=== PATIENT | male | born 1935 | race Caucasian/White ===

== ENCOUNTER → 2017-11-22 | Outpatient (CLI) | payer MEDICARE ==
[2017-11-22] VITALS (8 sets, daily range): BP systolic 114–129; BP diastolic 61–89
[~2017-11-22] VITALS: Ht 175.3 cm; Wt 81.6 kg
[~2017-11-22] MED LIST: ALDACTONE50 MG PO; CARVEDILOL25 MG PO; COZAAR 25 MG TA25 M1 PO; FOLBIC RF TABL1 EACH PO; HYDROCHLOROTHIA25 M1 PO; IRON325 PO; KLOR-CON 1010 MEQ PO; LASIX 40 MG TAB40 M2 PO; LEVAQUIN 500 M500 M2 PO; LEVOTHYROXIN0.137 M1 PO; LISINOPRIL20 MG PO; MECLIZINE HCL25 MG PO; MELATONIN3 MG PO; REQUIP 1 MG TABL1 M1 PO; TIKOSYN0.25 MG PO; TRAZODONE HCL50 MG PO; VITAMIN D1000 UNI1 PO; XARELTO20 MG PO
[2017-11-22 13:27] LABS: HEMATOCRIT 39.9 % (42.0-52.0); HEMOGLOBIN 13.7 gm/dL (14.0-18.0); MCH 32.4 pg (26.0-34.0); MCHC 34.3 g/dL (28.0-37.0); MCV 94.5 fL (80.0-100.0); MPV 7.7 fl. (7.2-11.1); RBC 4.22 mil/uL (4.50-6.00); RDW-CV 15.4 % (10.5-14.5); WBC 6.8 thou/uL (4.0-11.0)
[2017-11-22 13:38] LABS: ANION GAP 6 mmol/L (7-16); BUN 19 mg/dL (7-18); CHLORIDE 102 mmol/L (98-107); CO2 28 mmol/L (21-32); CREATININE 1.1 mg/dL (0.6-1.3); GLUCOSE 96 mg/dL (70-99); POTASSIUM 3.8 mmol/L (3.5-5.1); SODIUM 136 mmol/L (136-145)
[2017-11-22 13:39] LABS: APTT 27.9 Seconds (25.0-31.3); INR 1.2; PROTIME 12.4 Seconds (9.20-11.50)
[2017-11-22 13:42] LABS: ALBUMIN 3.8 g/dL (3.4-5.0); ALKALINE PHOSPHATASE 106 U/L (46-116); CHOLESTEROL 107 mg/dL (<200); HDL CHOLESTEROL 30 mg/dL (>40); LDL CHOLESTEROL 65 mg/dL (<100); SGOT 21 U/L (15-37); SGPT 32 U/L (30-65); TC:HDL 3.6 Ratio (Not establshd); TOTAL PROTEIN 7.4 g/dL (6.4-8.2); TRIGLYCERIDE 61 mg/dL (<150); VLDL 12 mg/dL (<40)
[2017-11-22 13:43] LABS: SERUM ASSESSMENT Clear
--- NOTE | 2017-11-22 18:13 | EKG ---
[place] [address] ELECTROCARDIOGRAM REPORT Name: JUANCARLOSBILL MAJOR Room: [facility]#: [id number] Admission: 11/22/17 Attend Phys: Augie Joya MD Discharge: Date of : 33 Report #: [id number] THIS REPORT FOR: //name// [facility] Test Date: 2017-11-22 Test Time: 14:02:31 Pat Name: BILL BAUER Department: Room: Gender: M Service Unit Operator: : 1935 Requested By: Augie Joya Order Number: [id number] MD: Augie Joya Measurements Intervals [place] Rate: 70 P: [place]: QRS: 263 QRSD: 181 T: 86 QT: 503 QTc: 543 Interpretive Statements ventricular-paced rhythm No further analysis attempted due to paced rhythm Compared to ECG 02/10/2016 09:11:13 AV dual-paced complex(es) or rhythm no longer present Electronically Signed On 11-22-2017 18:13:43 CDT by Augie Joya [email or web address] <ELECTRONICALLY SIGNED> By: Augie Joya MD, [facility] 11/22/171812 140 01 Augie Joya MD, FAC /EPI
--- NOTE | 2017-11-27 17:39 | CARD ---
[address] [address] CARDIAC CATH REPORT Name: BILL BAUER Room: [facility]#: [id number] Admission: 11/22/17 Attend Phys: Augie Joya MD Discharge: Date of : 34 Report #: [id number] THIS REPORT FOR: //name// APPROVED REPORT Study performed: 11/22/2017 15:23:38 Patient Details Patient Status: Out-Patient Room #: The patient is a 82 year-old male Event Personnel Augie Joya Air Bag Buffer, Roxana Borrego RN Track Inspector, Olivia Preston Monitor, Colin Witt (R) Scrub Procedures Performed Art Access - R radial artery Left Heart Cath w/or w/o Coronaries [id number] [facility] Procedure Narrative The patient was brought electively to the Cardiac Catheterization Laboratory and was prepped and draped in a sterile manner. The right wrist was infiltrated with 2% Lidocaine subcutaneous anesthesia. A Slender Glidesheath sheath was inserted into the right radial artery. Coronary angiography was performed using coronary diagnostic catheters. The right coronary system was accessed and visualized with a DCR: Frohna 4.0 5fr catheter. The left coronary system was accessed and visualized with a DCR: Frohna 4.0 5fr catheter. The left ventricle was accessed and visualized with a PC: Angled Pig 5fr catheter. Left ventricular/Aortic Valve gradient assessed via catheter pullback. Left ventriculogram was performed in BANSAL projection. Intraoperative Conscious Sedation Sedation start time: 15:50 Case end Time: 16:07 Fentanyl 25 mcg Versed 2 mg Fluoro Time: 4.7 minutes Dose: DAP 65415 cGycm2 863.99 mGy Contrast Type and Amount: Omnipaque 100 ml Diagnostic Cath Left [place] [address] CARDIAC CATH REPORT Name: BILL BAUER Room: [facility]#: [id number] Admission: 11/22/17 Attend Phys: Augie Joya MD Discharge: Date of : 34 Report #: [id number] Diagonal 1 Normal large branched Circumflex Normal OM1 Normal large in branched OM2 Normal and small in caliber OM3 Normal and small in caliber Right Coronary Normal R PDA Normal RPLV Small in caliber and normal Left Ventriculography The left ventricle is normal in size with moderately decreased contractility. The left ventricular ejection fraction is estimated to be 35-40%. There is global hypokinesis. Hemodynamics The aortic pressure is 106/54 mmHg with a mean of mmHg. The left ventricular pressure is 106/8 mmHg with a mean of mmHg. The left ventricular end diastolic pressure is 17 mmHg. There was no gradient across the aortic valve upon pullback. Pullback from the left ventricle to the aorta revealed no gradient across the aortic valve. Conclusion 1. Normal coronary arteries. 2. Global left ventricular systolic dysfunction. 3. Findings consistent with nonischemic cardiomyopathy. Recommendations 1. Continue medical management for heart failure. <ELECTRONICALLY SIGNED> By: Augie Joya MD, FACC 11/27/17 1739 38 173Micngozi Joya MD, FACC /INF
== END | disposition home or self-care (01) ==
LOC: M.CL 12:55
PROVIDERS: Internal Medicine Cardiovascular Disease
DX: I25.10 Atherosclerotic heart disease of native coronary artery without angina pectoris (principal); I48.0 Paroxysmal atrial fibrillation; I50.9 Heart failure, unspecified; Z79.899 Other long term (current) drug therapy; Z79.01 Long term (current) use of anticoagulants; Z98.890 Other specified postprocedural states

== ENCOUNTER 2017-11-26 16:43 | Inpatient (IN) | payer MEDICARE ==
[~2017-11-26] VITALS: Ht 175.3 cm; Wt 78.9 kg
[~2017-11-26 16:43] MED LIST changes: -ALDACTONE50 MG PO; -LEVAQUIN 500 M500 M2 PO
[2017-11-26 16:51] VITALS: BP 123/74
[2017-11-26 17:24] LABS: URINE BILIRUBIN NEGATIVE (Negative); URINE BLOOD TRACE (Negative); URINE CLARITY CLEAR; URINE COLOR YELLOW; URINE GLUCOSE-RANDOM NEGATIVE (Negative); URINE KETONES NEGATIVE (Negative); URINE LEUKOCYTES 1+ (Negative); URINE NITRITE NEGATIVE (Negative); URINE PROTEIN NEGATIVE (Negative); URINE UROBILINOGEN 0.2 E.U./dl (0.2-1.0)
[2017-11-26 17:37] LABS: BACTERIA None Seen /HPF (None Seen); CRYSTALS None Seen /LPF (None Seen); MUCUS None Seen strn/LPF (None Seen); SQUAMOUS NONE SEEN /LPF (0-3); URINE RBC 0-2 Rare /HPF (0-2); URINE WBC 0-5 Rare /HPF (0-5)
[2017-11-26 17:38] LABS: CASTS None Seen /LPF (None Seen)
[2017-11-26 17:38] LABS: ABSOLUTE BASOPHILS 0.1 thou/uL (0.0-0.2); ABSOLUTE EOSINOPHILS 0.2 thou/uL (0.0-0.7); ABSOLUTE MONOCYTES 0.5 thou/uL (0.0-1.2); ABSOLUTE NEUTROPHILS 4.4 thou/uL (1.6-8.1); BASOPHILS 1.3 %; EOSINOPHILS 3.3 %; HEMATOCRIT 40.8 % (42.0-52.0); HEMOGLOBIN 13.9 gm/dL (14.0-18.0); LYMPHOCYTES 16.3 %; MCH 32.2 pg (26.0-34.0); MCV 94.8 fL (80.0-100.0); MPV 8.3 fl. (7.2-11.1); NUCLEATED RBCS 0 /100WBC; PLATELET COUNT* 155 thou/uL (150-400); POLYS 71.1 %; RDW-CV 15.8 % (10.5-14.5); WBC 6.2 thou/uL (4.0-11.0)
[2017-11-26 17:48] LABS: ANION GAP 6 mmol/L (7-16); BUN 18 mg/dL (7-18); CALCIUM 9.7 mg/dL (8.5-10.1); CHLORIDE 102 mmol/L (98-107); CO2 29 mmol/L (21-32); CREATININE 1.3 mg/dL (0.6-1.3); GLUCOSE 97 mg/dL (70-99); POTASSIUM 4.1 mmol/L (3.5-5.1); SODIUM 137 mmol/L (136-145)
[2017-11-26 17:51] LABS: APTT 32.5 Seconds (25.0-31.3); INR 1.4; PROTIME 13.9 Seconds (9.20-11.50)
[2017-11-26 18:00] LABS: ALBUMIN 4.1 g/dL (3.4-5.0); ALKALINE PHOSPHATASE 102 U/L (46-116); NT-PRO BRAIN NAT PEPTIDE 14072 pg/mL (<300); SGOT 21 U/L (15-37); SGPT 27 U/L (30-65); TOTAL BILIRUBIN 2.3 mg/dL (<0.1-1.0); TOTAL PROTEIN 8.1 g/dL (6.4-8.2); TROPONIN-I LEVEL <0.06 ng/mL (<0.06)
[2017-11-26 21:00] VITALS: BP 129/62
[2017-11-26 21:15] VITALS: BP 138/73
[2017-11-26] MEDS ORDERED: ALDACTONE50 MG PO (22:35)
[2017-11-27] VITALS: BP 123/61
[2017-11-27 04:00] VITALS: BP 141/55
[2017-11-27 07:20] VITALS: BP 117/70
[2017-11-27 12:32] VITALS: BP 102/55
[2017-11-27 15:44] VITALS: BP 106/55
--- NOTE | 2017-11-27 17:09 | EKG ---
[place] [address] ELECTROCARDIOGRAM REPORT Name: BILL BAUER Room: [address] ADM IN M.R.#: [id number] Admission: 11/26/17 Attend Phys: Kimberley Lima Discharge: Date of : 34 Report #: [id number] THIS REPORT FOR: //name// [facility] ED Test Date: 2017-11-26 Test Time: 17:13:56 Pat Name: BILL BAUER Department: Room: [facility] Gender: M Able Seaman: JOSE : 1935 Requested By: Karma Bueno Order Number: [id number] MD: Eduardo Watts Measurements Intervals [place] Rate: 71 P: [place]: QRS: 268 QRSD: 168 T: 93 QT: 477 QTc: 519 Interpretive Statements Afib/flut and V-paced complexes No further analysis attempted due to paced rhythm Compared to ECG 11/22/2017 14:02:31 No significant changes Electronically Signed On 11-27-2017 17:09:12 CDT by Eduardo Watts [email or web address] <ELECTRONICALLY SIGNED> By: Eduardo Watts MD, FACC 11/27/17 1709 1713 1713 Eduardo Watts MD, FAC /EPI
[2017-11-27 20:00] VITALS: BP 103/61
[2017-11-28] VITALS: BP 118/65
[2017-11-28 04:00] VITALS: BP 101/49
[2017-11-28 05:10] LABS: HEMATOCRIT 42.5 % (42.0-52.0); HEMOGLOBIN 14.6 gm/dL (14.0-18.0); MCH 31.9 pg (26.0-34.0); MCHC 34.3 g/dL (28.0-37.0); MCV 93.2 fL (80.0-100.0); MPV 7.9 fl. (7.2-11.1); RBC 4.56 mil/uL (4.50-6.00); RDW-CV 15.8 % (10.5-14.5); WBC 6.1 thou/uL (4.0-11.0)
[2017-11-28 06:05] LABS: ALBUMIN 3.8 g/dL (3.4-5.0); CALCIUM 9.1 mg/dL (8.5-10.1); CREATININE 1.2 mg/dL (0.6-1.3); POTASSIUM 3.5 mmol/L (3.5-5.1); TOTAL BILIRUBIN 2.4 mg/dL (<0.1-1.0); TOTAL PROTEIN 7.1 g/dL (6.4-8.2)
[2017-11-28 08:37] VITALS: BP 123/64
[2017-11-28 12:00] VITALS: BP 109/62
[2017-11-28] MEDS ORDERED: LEVAQUIN 500 M500 M2 PO (12:25)
== END 2017-11-28 15:00 | disposition home or self-care (01) | DRG 291 ==
LOC: M.ERS 16:43 → M.TBA-ER 19:06 → M.2W 19:06
PROVIDERS: Nurse Practitioner Family; ADMIT Internal Medicine
DX: I11.0 Hypertensive heart disease with heart failure (principal); I50.31 Acute diastolic (congestive) heart failure; J96.00 Acute respiratory failure, unspecified whether with hypoxia or hypercapnia; I42.8 Other cardiomyopathies; E89.0 Postprocedural hypothyroidism; R91.8 Other nonspecific abnormal finding of lung field; R59.1 Generalized enlarged lymph nodes; Z79.01 Long term (current) use of anticoagulants; Z79.899 Other long term (current) drug therapy; Z85.850 Personal history of malignant neoplasm of thyroid; Z87.891 Personal history of nicotine dependence

== ENCOUNTER 2017-12-04 21:16 | Inpatient (IN) | payer MEDICARE ==
[~2017-12-04] VITALS: Ht 175.3 cm; Wt 81.6 kg
[~2017-12-04 21:16] MED LIST changes: +ALDACTONE50 MG PO; +LEVAQUIN 500 M500 M2 PO
[2017-12-04 21:28] VITALS: BP 100/43
[2017-12-04 22:11] LABS: ABSOLUTE BASOPHILS 0.1 thou/uL (0.0-0.2); ABSOLUTE EOSINOPHILS 0.2 thou/uL (0.0-0.7); ABSOLUTE LYMPHOCYTES 0.9 thou/uL (0.8-5.3); ABSOLUTE MONOCYTES 0.8 thou/uL (0.0-1.2); ABSOLUTE NEUTROPHILS 6.7 thou/uL (1.6-8.1); BASOPHILS 0.6 %; EOSINOPHILS 2.6 %; HEMATOCRIT 47.5 % (42.0-52.0); HEMOGLOBIN 16.1 gm/dL (14.0-18.0); LYMPHOCYTES 10.5 %; MCHC 33.8 g/dL (28.0-37.0); MCV 94.8 fL (80.0-100.0); MONOCYTES 8.8 %; MPV 8.3 fl. (7.2-11.1); NUCLEATED RBCS 0 /100WBC; PLATELET COUNT* 184 thou/uL (150-400); POLYS 77.5 %; RBC 5.02 mil/uL (4.50-6.00); RDW-CV 15.8 % (10.5-14.5); WBC 8.7 thou/uL (4.0-11.0)
[2017-12-04 22:18] LABS: ANION GAP 9 mmol/L (7-16); BUN 72 mg/dL (7-18); CALCIUM 10.7 mg/dL (8.5-10.1); CHLORIDE 98 mmol/L (98-107); CO2 26 mmol/L (21-32); CREATININE 2.8 mg/dL (0.6-1.3); GLUCOSE 146 mg/dL (70-99); POTASSIUM 4.8 mmol/L (3.5-5.1); SODIUM 133 mmol/L (136-145)
[2017-12-04 22:19] LABS: APTT 33.2 Seconds (25.0-31.3); INR 1.3; PROTIME 13.8 Seconds (9.20-11.50)
[2017-12-04 22:29] LABS: ALBUMIN 3.8 g/dL (3.4-5.0); ALKALINE PHOSPHATASE 104 U/L (46-116); NT-PRO BRAIN NAT PEPTIDE 5552 pg/mL (<300); SGOT 21 U/L (15-37); SGPT 27 U/L (30-65); TOTAL BILIRUBIN 1.3 mg/dL (<0.1-1.0); TOTAL PROTEIN 7.8 g/dL (6.4-8.2); TROPONIN-I LEVEL <0.06 ng/mL (<0.06)
[2017-12-05] VITALS (7 sets, daily range): BP systolic 95–130; BP diastolic 48–67
[2017-12-05 01:22] LABS: URINE BILIRUBIN NEGATIVE (Negative); URINE BLOOD 2+ (Negative); URINE CLARITY CLEAR; URINE COLOR YELLOW; URINE GLUCOSE-RANDOM NEGATIVE (Negative); URINE KETONES NEGATIVE (Negative); URINE LEUKOCYTES-REFLEX TRACE (Negative); URINE NITRITE-REFLEX NEGATIVE (Negative); URINE PROTEIN NEGATIVE (Negative); URINE UROBILINOGEN 0.2 E.U./dl (0.2-1.0)
[2017-12-05 01:37] LABS: SQUAMOUS 0-3 Few /LPF (0-3)
[2017-12-05 01:38] LABS: BACTERIA-REFLEX 1-9 Few /HPF (None Seen); CASTS None Seen /LPF (None Seen); URINE RBC 3-10 Few /HPF (0-2); URINE WBC-REFLEX 0-5 Rare /HPF (0-5)
[2017-12-05 01:39] LABS: CRYSTALS None Seen /LPF (None Seen)
--- NOTE | 2017-12-05 05:20 | NUR ---
PATIENT RESTED IN BED, NO ACUTE CHANGES. PATIENT DID NOT SHOW SIGNS OF DISTRESS. FALL PRECAUTIONS IN PLACE, CALL LIGHT WITH IN REACH, HOURY ROUNDING OBSERVED, BED ALARM ON.
[2017-12-05 06:59] LABS: CALCIUM 9.8 mg/dL (8.5-10.1); CREATININE 2.3 mg/dL (0.6-1.3); POTASSIUM 4.5 mmol/L (3.5-5.1)
--- NOTE | 2017-12-05 10:57 | EKG ---
[place] [address] ELECTROCARDIOGRAM REPORT Name: BILL BAUER Room: [address] ADM IN M.R.#: [id number] Admission: 12/04/17 Attend Phys: Kelsey Treviño Discharge: Date of : 34 Report #: [id number] THIS REPORT FOR: //name// [facility] ED Test Date: 2017-12-04 Test Time: 21:45:38 Pat Name: BILL BAUER Department: Room: [facility] Gender: M Binder Operator: CODEY : 1935 Requested By: Stacey Mcfarland Order Number: [id number] MD: Zack Cox Measurements Intervals [place] Rate: 70 P: [place]: QRS: -86 QRSD: 166 T: 97 QT: 457 QTc: 494 Interpretive Statements Afib/flutter and ventricular-paced rhythm No further analysis attempted due to paced rhythm Compared to ECG 11/26/2017 17:13:56 No significant changes Electronically Signed On 12-05-2017 10:57:33 CDT by Zack Cox [email or web address] <ELECTRONICALLY SIGNED> By: Zack Cox MD, FACC 12/05/17 1057 2145 2145 Zack Cox MD, FAC /EPI
--- NOTE | 2017-12-05 11:17 | NUR ---
RECEIVED REPORT FROM WANDA AND ASSUMED CARE OF PT @ 9210.PT IS A/O X4, VSS,TRACING V PACED WITH A BBB ON THE MONITOR.LUNG SOUNDS ARE CLEAR.LAST BM WAS YESTERDAY.IV PATENT WITH FLUIDS INFUSING PER ORDERS.PT IS CALM AND COOPERATIVE WITH NO C/O PAIN AT TIME OF ASSESSMENT.PT ACTIVITY ORDERED BEDREST.PT LEFT RESTING IN BED WITH CALL LIGHT AND FALL PRECAUTIONS IN PLACE.WILL CONTINUE TO MONITOR.
--- NOTE | 2017-12-05 15:26 | NUR ---
Pt known to this CM from previous hospital stay last week. Pt is A&O. Resides at home with his . Normally independent with ADLs. Pt has a cane that he can use as needed. Pt sleeps with a bipap. No hx of HH or SNF. Goal is home at wi. No needs anticipated.
--- NOTE | 2017-12-05 18:25 | NUR ---
VSS,CARDIAC MONITORING IN PLACE WITH NO CHANGES THIS SHIFT.PT REMAINS ON 2L O2 NC.NO C/O PAIN.IV PATENT WITH IVF INFUSING PER ORDERS.CT COMPLETED.PT HAS BEEN UP TO BATHROOM WITH ASSIST OF ONE.HOURLY ROUNDING COMPLETED FOR PT SAFETY. CALL LIGHT AND FALL PRECAUTIONS IN [place]. WILL CONTINUE TO MONITOR FOR DURATION OF SHIFT.
[2017-12-06 00:43] VITALS: BP 111/58
--- NOTE | 2017-12-06 01:04 | NUR ---
PT ALERT ORIENTED. UP WITH CANE AND ASSIST OF ONE. TELEMETRY SHOWS V-PACED. O2 AT 2 LITERS NC. NS AT 125MLS/HR. WILL CONTINUE TO MONITOR.
[2017-12-06 04:25] VITALS: BP 111/60
[2017-12-06 05:15] LABS: HEMATOCRIT 46.2 % (42.0-52.0); HEMOGLOBIN 15.8 gm/dL (14.0-18.0); MCH 32.2 pg (26.0-34.0); MCHC 34.1 g/dL (28.0-37.0); MCV 94.4 fL (80.0-100.0); MPV 8.3 fl. (7.2-11.1); RBC 4.9 mil/uL (4.50-6.00); RDW-CV 15.5 % (10.5-14.5)
[2017-12-06 05:32] LABS: ALBUMIN 3.5 g/dL (3.4-5.0); CALCIUM 9.1 mg/dL (8.5-10.1); CREATININE 1.7 mg/dL (0.6-1.3); MAGNESIUM 1.9 mg/dL (1.8-2.4); POTASSIUM 4.3 mmol/L (3.5-5.1); TOTAL BILIRUBIN 1.8 mg/dL (<0.1-1.0); TOTAL PROTEIN 6.7 g/dL (6.4-8.2)
[2017-12-06 08:20] VITALS: BP 116/71
[2017-12-06 11:34] VITALS: BP 135/61
--- NOTE | 2017-12-06 13:09 | NUR ---
PT ALERT, ORIENTED AND ALL VSS ON ROOM AIR. DENIES PAIN, SOA. PT LOOKING FORWARD TO DC THIS AFTERNOON. AT BEDSIDE THROUGHOUT SHIFT. EDUCATED ON SAFETY AND PLAN OF CARE. PLEASE SEE ASSESSMENT FOR ADDITIONAL INFORMATION. WILL CONTINUE TO MONITOR
[2017-12-06 13:48] VITALS: BP 135/61
--- NOTE | 2017-12-06 15:51 | NUR ---
PT DC HOME WITH AT APPROX 1500 IN STABLE CONDITION. DC INSTRUCTIONS PROVIDED TO PT AND - VERBALIZE UNDERSTANDING.
--- NOTE | 2017-12-07 09:19 | CON ---
[address] [address] CONSULTATION Name: BILL BAUER Room: [address] IN M.R.#: [id number] Admission: 12/04/17 Attend Phys: Kelsey Treviño Discharge: 12/06/17 Date of : 34 Report #: [id number] THIS REPORT FOR: //name// CC: Dilip Pop DATE OF SERVICE: 12/05/2017 CONSULTING PHYSICIAN: Dr. Pop. REASON FOR NEPHROLOGY CONSULTATION: Acute kidney injury on chronic kidney disease stage 3. CHIEF COMPLAINT: Weakness and loss of appetite and 5-pound weight loss in the last 6 days, and low blood pressure and fatigue. HISTORY OF PRESENT ILLNESS: This is an 82-year-old male who has past medical history of chronic systolic congestive heart failure, has AICD, ejection fraction 35-40% in 11/2017, baseline creatinine 1.1-1.2, recently discharged a week ago from our hospital when he got admitted for congestive heart failure exacerbation and was restarted on his Lasix, which was initially stopped because of cardiac cath. He came in yesterday because he has been feeling very weak. He has loss of appetite. He has lost about 5 pounds of weight in the last 6 days. On his last hospitalization, he had a cardiac cath and he was off Lasix for 2 days, cardiac catheterization did not reveal any obstruction and was deemed that he has nonischemic cardiomyopathy and he was restarted on Lasix after 2 days of hold because he started having shortness of breath. At this time, he was found to be quite hypotensive and orthostatic hypotension as well in the ER. He was started on IV fluids and all his diuretics on hold. His creatinine was 2.8 when he came in and it has come down to 2.3 now. He does not have any difficulty breathing or difficulty urinating. His is at his bedside. He does not take any NSAIDs. No history of any kidney stones. ALLERGIES: No known drug allergies. REVIEW OF SYSTEMS: As mentioned in history of present illness. HOME MEDICATIONS: Include Levaquin, cholecalciferol, ferrous sulfate, losartan, trazodone, ropinirole, B12, levothyroxine, potassium, carvedilol, rivaroxaban, furosemide and spironolactone. PAST MEDICAL AND SURGICAL HISTORY: Include thyroidectomy, chronic systolic congestive heart failure with ejection fraction of 35-40%, nonischemic cardiomyopathy, history of thyroid cancer AICD, chronic kidney disease stage 3, baseline creatinine 1.1-1.2. [place] [address] CONSULTATION Name: BILL BAUER Room: [address] IN M.R.#: [id number] Admission: 12/04/17 Attend Phys: Kelsey Treviño Discharge: 12/06/17 Date of : 34 Report #: [id number] FAMILY HISTORY: No family history of any kidney disease. SOCIAL HISTORY: He does not smoke, take alcohol or use recreational drug use. He lives at home with his . PHYSICAL EXAMINATION: VITAL SIGNS: Blood pressure is 107/57, respiratory rate is 16, pulse rate was 66, temperature is 36.7 and pulse is 95% on room air. GENERAL: He is awake and alert and oriented, just feels weakness. HEAD, EYES, EARS, NOSE, THROAT: Mucous membranes are moist. NECK: There is no JVD. CHEST: Clear to auscultation bilaterally anteriorly. No crackles or wheezing heard. CARDIOVASCULAR: S1, S2 normal. No murmurs. ABDOMEN: Soft, nondistended, nontender. Bowel sounds are present. EXTREMITIES: There is no lower extremity edema, symmetrical lower extremity. NEUROLOGICAL: Gross neurological function is intact. PSYCHIATRIC: Mood and affect seem to be normal. LABORATORY DATA: Hemoglobin is 16.1. Sodium 135, potassium 4.5, chloride 101, BUN 65. Creatinine 2.3 from 2.8 yesterday and other labs are reviewed. IMAGING: Head CT and chest x-ray were reviewed. ASSESSMENT: 1. Acute kidney injury on chronic kidney disease stage 3 in the setting of hypotension, ARB use, Aldactone use and Lasix use and extreme intravascular volume depletion. Creatinine was 2.8 on admission. UA shows 3-10 rbc's by high-power field and this should be repeated once his acute kidney injury gets better. Acute injury is improving with IV fluids and holding diuretics. 3. Chronic systolic congestive heart failure, nonischemic cardiomyopathy, ejection fraction 35-40%. He is currently dry. 4. Severe orthostatic hypotension because of volume depletion and diuretics. 5. Fatigue because of dehydration. PLAN: 1. Continue fluids, but I would recommend decreasing IV fluids now to normal saline at 50 mL an hour. 2. Creatinine is getting better with IV fluids. We do not need to check a renal ultrasound and check serum immunofixation study right now. If we do not see improvement or if he is worsening again, we might want to check ultrasound and serum immunofixation. 3. Continue to hold the ARB, Aldactone and Lasix for now. Also, continue to hold his potassium for now. Thank you for the consultation. We will continue to follow along with you. [place] [address] CONSULTATION Name: BILL BAUER Room: [address] IN M.R.#: [id number] Admission: 12/04/17 Attend Phys: Kelsey Treviño Discharge: 12/06/17 Date of : 34 Report #: [id number] Discussed the plan with the patient, the patient's as well as the patient's nurse. <ELECTRONICALLY SIGNED> By: Licha Leavitt MD 12/07/17 0919 1001 [id number] Leavitt MD /nt
--- NOTE | 2017-12-07 12:46 | CON ---
[address] [address] CONSULTATION Name: BILL BAUER Room: [address] IN M.R.#: [id number] Admission: 12/04/17 Attend Phys: Kelsey Treviño Discharge: 12/06/17 Date of : 34 Report #: [id number] THIS REPORT FOR: //name// CC: Dilip Pop DATE OF SERVICE: 12/06/2017 REQUESTING PHYSICIAN: Chantell Moore REASON FOR CONSULTATION: Pulmonary nodules. DISCUSSION: The patient is an 82-year-old man who is in the hospital currently because of acute kidney injury and ongoing issues with heart failure and diuresis. When he was here earlier this month, he had a CT scan done of his chest. It did reveal pulmonary nodules. He is a remote smoker. He has had pulmonary nodules as well as mediastinal adenopathy noted previously. He does follow with Dr. Carmona in our office. His last study was this spring. However, those films were not done at [facility]. Those imaging studies did reveal that the changes were stable to actually improved and reviewing the notes, the tentative plan was to repeat imaging studies about a year after the previous ones. He is a very remote smoker. He does have a history of sleep apnea, but otherwise has not had a history of asthma or any COPD. He is supposed to be on BiPAP at home for his sleep apnea. This month, he has had issues with his heart failure. He has been diuresed. Came back because his creatinine was actually elevated and he was weak. He was cautiously hydrated. His creatinine has improved. He is not requiring any supplemental oxygen. He had followup imaging done again. This shows the persistence of the nodules and adenopathy and we were asked to see him. PAST MEDICAL HISTORY: Remarkable for atrial fibrillation, coronary artery disease and heart failure as noted. He has a history of thyroid cancer. He had a thyroidectomy in 2010. He was treated with radioactive iodine after that. He has continued with regular followup with a physician now by [facility]. He is due for followup within the next month or so. He has a history of atrial fibrillation, nonischemic cardiomyopathy, thyroid cancer and nephrolithiasis. He has had cataract surgery. He is chronically anticoagulated. SOCIAL HISTORY: He is . 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 Remote smoker, quitting back in the 1960s. He has less than 71-exvj-eabq [place] [address] CONSULTATION Name: BILL BAUER Room: [address]#: [id number] Admission: 12/04/17 Attend Phys: Kelsey Treviño Discharge: 12/06/17 Date of : 34 Report #: [id number] FAMILY HISTORY: Positive for hypertension. REVIEW OF SYSTEMS: ROS was done. No positives as above. Typically, he does not have much of any cough or sputum production. No wheezing. No chest pain or palpitations. The weakness he had at the time of admission has improved. No lower extremity edema. No difficulty swallowing. No indigestion or heartburn. PHYSICAL EXAMINATION: GENERAL APPEARANCE: A man who looks stated age. He is fully dressed and actually anxious to be discharged. His is present as well. HEENT: Head is normocephalic and atraumatic. Sclerae are nonicteric. Mucous membranes are little dry. NECK: Negative for adenopathy. Neck muscles well developed. Neck veins do not appear full. No supraclavicular adenopathy. HEART: Irregularly irregular. Grade 1/6 systolic murmur. LUNGS: Clear. No wheezing or crackles are heard. Excursion is equal. EXTREMITIES: He has no clubbing. Lower extremities are negative for edema. LABORATORY AND X-RAY FINDINGS: CT scans done here do show bilateral small pulmonary nodules. He also has mediastinal adenopathy as well as some hilar adenopathy. I am unable to do a direct comparison with studies done at [facility]. I do have those reports; however, provided to me by my office. As I commented, unable to do a direct comparison. However, on reviewing measurements obtained on imaging studies done earlier this year, it appears to me that with the current findings that findings are at least stable to perhaps improved. His chemistry, he came in with a ____ of 2.8 and has decreased to 1.7 today and his BUN is 47. Serum bicarbonate 25 and potassium is 4.3. Total bilirubin had been up to 2.4 and down to 1.8. ProBNP several days ago was just over 5500. White blood cell count 7000, hemoglobin 15.8, hematocrit of 46.2 and platelets are 130,000. He is on room air. IMPRESSION: 1. Bilateral small pulmonary nodules. He has been followed over the last several years by Dr. Carmona in our office for these. He has associated mild mediastinal adenopathy as well. I believe current findings are probably stable to perhaps slightly improved. 2. History of thyroid cancer. Status post thyroidectomy and radioactive iodine treatment. 3. Nonischemic cardiomyopathy. 4. Atrial fibrillation, he is on chronic anticoagulation therapy. 5. Sleep apnea, he is on BiPAP at home. RECOMMENDATIONS: [facility] [address] [address] CONSULTATION Name: BILL BAUER Room: [address] IN M.R.#: [id number] Admission: 12/04/17 Attend Phys: Kelsey Treviño Discharge: 12/06/17 Date of : 34 Report #: [id number] 1. He can be discharged at any time from our viewpoint. No additional testing or intervention needs to be done in this regard. 2. Keep his appointment with Dr. Carmona. He will need followup imaging done in the future. Discussed with him and his . They are both aware of the fact that with the findings noted, a biopsy would be extremely difficult given the relatively small size of the nodules. High likelihood of a pneumothorax. We will continue close observation. <ELECTRONICALLY SIGNED> By: Mag Toledo MD 12/07/17 1246 1347 [id number] Toledo MD /nt
--- NOTE | 2017-12-07 13:12 | CON ---
[address] [address] CONSULTATION Name: BILL BAUER Room: [address] IN M.R.#: [id number] Admission: 12/04/17 Attend Phys: Kelsey Treviño Discharge: 12/06/17 Date of : 33 Report #: [id number] THIS REPORT FOR: //name// CC: Dilip Bird DATE OF SERVICE: 12/05/2017 TYPE OF REPORT: Cardiology consultation. HISTORY OF PRESENT ILLNESS: The patient is an 82-year-old white male who I was asked to see in the hospital today after he was noted be hypotensive. The patient has an extensive past medical history. He has a long history of paroxysmal atrial fibrillation. He previously was cared for by my partner, Dr. Aragon. He has been cardioverted several times in the past. However, he had recurrent AFib. He eventually underwent AV node ablation followed by placement of a defibrillator for primary prevention in the setting of a cardiomyopathy. Recently, he has been followed by my partner, Dr. Joya. He actually just underwent a cardiac catheterization last month after he was noted to have an abnormal nuclear stress test. Ejection fraction on the nuclear stress test was only 31%. There was evidence of previous inferior infarction but no ischemia. Dr. Joya then performed a cardiac catheterization on November 22, which is basically 2 weeks ago. This was performed from the right radial artery. The coronary arteries had no significant atherosclerosis. Ejection fraction was 35%. Left ventricular end diastolic pressure was 17. He went home but was readmitted 3 days later with increasing shortness of breath. He was admitted to the hospital and a chest x-ray showed normal heart size and clear lung sampson. He did undergo CT scan of the chest using a PE protocol that showed no pulmonary emboli, multiple small nodules, hilar adenopathy consistent with metastatic disease and small effusions. He also had a CT scan of the head that showed no hemorrhage but atrophy. The patient was diuresed and he was sent home a week ago. He returned to see my nurse practitioner 5 days ago. When the patient came to the office, he complained of fatigue. He has had no further edema. His blood pressure was 110. The states that recently he has been very fatigued and had no energy. He has had no vomiting, fever, diarrhea or bleeding. He denied any chest pain, shortness of breath, orthopnea or palpitations. He has never had a discharge of his defibrillator. Yesterday, the patient's blood pressure was noted to be less than 100. The patient called my office and was told to come to the hospital and he was admitted last night for further evaluation and treatment. PAST MEDICAL HISTORY: Significant for thyroidectomy for cancer and cataract extraction. No history of hypertension, diabetes or hyperlipidemia. He does have sleep apnea [place] [address] CONSULTATION Name: BILL BAUER Room: [address] IN [facility].#: [id number] Admission: 12/04/17 Attend Phys: Kelsey Treviño Discharge: 12/06/17 Date of : 34 Report #: [id number] MEDICATIONS: Consists of carvedilol, Lasix, Synthroid, losartan, meclizine, potassium, Xarelto, Requip and spironolactone. ALLERGIES: He has no known drug allergies. FAMILY HISTORY: Negative for heart disease. SOCIAL HISTORY: He is , lives with his in [place], [place]. 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 No smoking or alcohol abuse. REVIEW OF SYSTEMS: He has had no history of stroke, asthma, peptic ulcer disease or liver disease. He has had a kidney stone. No cancer. No psychiatric illness. PHYSICAL EXAMINATION: GENERAL: Revealed an elderly male, lying in bed, appeared in no distress. VITAL SIGNS: Blood pressure is 100/60, pulse 70 and he is afebrile. HEENT: He was anicteric. Conjunctivae pink. Mucous members moist. NECK: Neck veins do not appear distended. No carotid bruits. CHEST: Clear to auscultation. CARDIOVASCULAR: Regular rate and rhythm. ABDOMEN: Soft. EXTREMITIES: Had no edema. SKIN: Warm and dry. NEUROLOGICAL: Nonfocal. RADIOLOGICAL DATA: His ECG shows a ventricular paced rhythm. He has underlying rhythm appears to be atrial fibrillation. His CT scan of the chest done again last night showed resolution of the small effusions, multiple nodules and possible metastatic disease. His chest x-ray last night showed no acute abnormality. LABORATORY DATA: Sodium 135 and creatinine 2.3 and 2 weeks ago, it was 1.1. Liver function studies are normal. Albumin 3.8. Troponin 0.06. BNP 5552. Recent LDL was 65. White blood cell count 8.7 and hemoglobin 16.1. IMPRESSION AND RECOMMENDATIONS: 1. Hypotension. I would recommend decreasing the amount of beta brennen and adrenergic receptor binder the patient is on. I would perhaps cut the Lasix to every other day. 2. Nonischemic cardiomyopathy. The patient has been on an adrenergic receptor binder, beta brennen and Aldactone. 3. Previous implantation of defibrillator. No recent discharges. 4. Sick-sinus syndrome. Previous ablation of the atrioventricular node. The patient is 100% paced. 5. History of thyroid cancer. [address] [address] CONSULTATION Name: BILL BAUER Room: [address] IN .R.#: [id number] Admission: 12/04/17 Attend Phys: Kelsey Treviño Discharge: 12/06/17 Date of : 34 Report #: [id number] 6. Sleep apnea. The patient uses a continuous positive airway pressure. 7. Lung nodules. The patient previously was taken off of the amiodarone because of lung nodules. The patient is going to be seen by Pulmonary. 8. Acute kidney injury. I will hold diuretics. <ELECTRONICALLY SIGNED> By: Zack Cox MD, FACC 12/07/17 1312 1507 [id number] Cox MD, FACC /nt
== END 2017-12-06 15:23 | disposition home or self-care (01) | DRG 683 ==
LOC: M.ERS 21:16 → M.TBA-ER 23:31 → M.2W 23:31
PROVIDERS: Internal Medicine; Personal Emergency Response Attendant; ADMIT Internal Medicine
DX: N17.0 Acute kidney failure with tubular necrosis (principal); I50.22 Chronic systolic (congestive) heart failure; E86.9 Volume depletion, unspecified; E89.0 Postprocedural hypothyroidism; I95.1 Orthostatic hypotension; N18.3 Chronic kidney disease, stage 3 (moderate); I95.9 Hypotension, unspecified; E86.0 Dehydration; I48.0 Paroxysmal atrial fibrillation; I49.5 Sick sinus syndrome; R91.1 Solitary pulmonary nodule; R59.0 Localized enlarged lymph nodes; I25.5 Ischemic cardiomyopathy; G47.33 Obstructive sleep apnea (adult) (pediatric); Z85.850 Personal history of malignant neoplasm of thyroid; Z82.49 Family history of ischemic heart disease and other diseases of the circulatory system; Z95.0 Presence of cardiac pacemaker; Z98.49 Cataract extraction status, unspecified eye; Z87.442 Personal history of urinary calculi; Z79.01 Long term (current) use of anticoagulants; Z87.891 Personal history of nicotine dependence

== ENCOUNTER 2018-07-03 13:04 | Inpatient (IN) | payer MEDICARE ==
[~2018-07-03] VITALS: Ht 175.3 cm; Wt 90.7 kg
[2018-07-03 13:08] VITALS: BP 114/62
[2018-07-03] MEDS ORDERED: COZAAR 25 MG TA25 M2 PO (13:15)
[2018-07-03] MEDS ORDERED: LIPITOR10 MG PO (13:16)
[2018-07-03] MEDS ORDERED: FLECAINIDE ACET50 M1 PO (13:18)
[2018-07-03 13:26] LABS: ABSOLUTE BASOPHILS 0.1 thou/uL (0.0-0.2); ABSOLUTE EOSINOPHILS 0.2 thou/uL (0.0-0.7); ABSOLUTE LYMPHOCYTES 0.9 thou/uL (0.8-5.3); ABSOLUTE MONOCYTES 0.3 thou/uL (0.0-1.2); ABSOLUTE NEUTROPHILS 5.7 thou/uL (1.6-8.1); BASOPHILS 1.4 %; EOSINOPHILS 2.4 %; HEMATOCRIT 40.1 % (42.0-52.0); HEMOGLOBIN 13.7 gm/dL (14.0-18.0); LYMPHOCYTES 13.1 %; MCH 34.3 pg (26.0-34.0); MCHC 34.1 g/dL (28.0-37.0); MCV 100.3 fL (80.0-100.0); MONOCYTES 4.5 %; MPV 7.6 fl. (7.2-11.1); NUCLEATED RBCS 0 /100WBC; PLATELET COUNT* 179 thou/uL (150-400); POLYS 78.6 %; RBC 3.99 mil/uL (4.50-6.00); RDW-CV 14.9 % (10.5-14.5); WBC 7.2 thou/uL (4.0-11.0)
[2018-07-03 13:34] LABS: ANION GAP 9 mmol/L (7-16); BUN 25 mg/dL (7-18); CALCIUM 9.1 mg/dL (8.5-10.1); CHLORIDE 102 mmol/L (98-107); CO2 29 mmol/L (21-32); CREATININE 1.6 mg/dL (0.6-1.3); GLUCOSE 141 mg/dL (70-99); POTASSIUM 3.5 mmol/L (3.5-5.1); SODIUM 140 mmol/L (136-145)
[2018-07-03 13:44] LABS: ALBUMIN 4.3 g/dL (3.4-5.0); ALKALINE PHOSPHATASE 84 U/L (46-116); SGOT 95 U/L (15-37); SGPT 124 U/L (30-65); TOTAL BILIRUBIN 3.5 mg/dL (<0.1-1.0); TOTAL PROTEIN 7.6 g/dL (6.4-8.2); TROPONIN-I LEVEL <0.06 ng/mL (<0.06)
[2018-07-03] MEDS ORDERED: SYNTHROID125 MC1 PO (15:26)
[2018-07-03 15:28] VITALS: BP 125/81
[2018-07-03 15:33] VITALS: BP 125/81
--- NOTE | 2018-07-03 17:36 | NUR ---
PT TO UNIT FROM ER. ALERT AND ORIENTED. TELE TRACKING VPACED AND ALL VSS ON ROOM AIR. DENIES CP, SOA AT REST. DOES HAVE COLBERT. EDUCATED ON SAFETY AND PLAN OF CARE. PLEASE SEE ASSESSMENT FOR ADDITIONAL INFORMATION. WILL CONT TO MONITOR
[2018-07-03 20:10] VITALS: BP 138/93
[2018-07-04 00:07] VITALS: BP 120/71
[2018-07-04 03:54] LABS: ABSOLUTE LYMPHOCYTES 0.4 thou/uL (0.8-5.3); ABSOLUTE MONOCYTES 0.1 thou/uL (0.0-1.2); ABSOLUTE NEUTROPHILS 5.4 thou/uL (1.6-8.1); BASOPHILS 0.2 %; HEMATOCRIT 38.2 % (42.0-52.0); HEMOGLOBIN 13.4 gm/dL (14.0-18.0); LYMPHOCYTES 7.2 %; MCH 34.7 pg (26.0-34.0); MCHC 35.2 g/dL (28.0-37.0); MCV 98.6 fL (80.0-100.0); MONOCYTES 1.1 %; MPV 7.6 fl. (7.2-11.1); NUCLEATED RBCS 0 /100WBC; PLATELET COUNT* 159 thou/uL (150-400); POLYS 91.5 %; RBC 3.87 mil/uL (4.50-6.00); RDW-CV 14.5 % (10.5-14.5); WBC 5.9 thou/uL (4.0-11.0)
[2018-07-04 04:05] VITALS: BP 119/67
[2018-07-04 04:25] LABS: CALCIUM 8.6 mg/dL (8.5-10.1); CREATININE 1.5 mg/dL (0.6-1.3); MAGNESIUM 2.1 mg/dL (1.8-2.4); POTASSIUM 3.3 mmol/L (3.5-5.1)
--- NOTE | 2018-07-04 04:58 | NUR ---
PT CARE ASSUMED AT 1930. ALERT AND ORIENTED X4. CALL LIGHT WITHIN REACH AND BED IN LOW POSITION. DENIES PAIN AND SOB. HOURLY ROUNDING DONE FOR PT SAFETY.
[2018-07-04 07:18] LABS: URINE BILIRUBIN NEGATIVE (Negative); URINE BLOOD TRACE (Negative); URINE CLARITY CLEAR; URINE COLOR YELLOW; URINE GLUCOSE-RANDOM NEGATIVE (Negative); URINE KETONES NEGATIVE (Negative); URINE LEUKOCYTES-REFLEX NEGATIVE (Negative); URINE NITRITE-REFLEX NEGATIVE (Negative); URINE PROTEIN NEGATIVE (Negative); URINE UROBILINOGEN 0.2 E.U./dl (0.2-1.0)
[2018-07-04 08:00] VITALS: BP 135/80
--- NOTE | 2018-07-04 09:58 | NUR ---
RECEIVED REPORT FORM HIREN AND ASSUMED CARE OF PT @ 9657.PT IS A/O X4,VSS,TRACING V PACED WITH PVC ON THE MONITOR.IV PATENT AND SALINE LOCKED.PT IS CALM AND COOPERATIVE WITH NO C/O PAIN.PT REMAINS NPO STATUS PENDING CARDIO.PT IS UP AD DANIELE WITH CALL LIGHT WITHIN REACH.WILL CONTINUE TO MONITOR.
--- NOTE | 2018-07-04 11:40 | NUR ---
Pt is A&O. Resides at home with his . Normally independent. Pt sleeps with a bipap. No hx of HH or SNF. Goal is home at [place], no needs anticipated.
[2018-07-04 12:05] VITALS: BP 134/56
--- NOTE | 2018-07-04 14:16 | 2DMMODE ---
[place] [address] 2 D/M-MODE ECHOCARDIOGRAM Name: BILL BAUER Room: [address] IN [facility]#: [id number] Admission: 07/03/18 Attend Phys: Rosa Peoples MD Discharge: Date of : 34 Date of Service: 07/04/18 1416 Report #: [id number] THIS REPORT FOR: //name// APPROVED REPORT Study performed: 07/04/2018 10:01:49 EXAM: Comprehensive 2D, Doppler, and color-flow Echocardiogram Patient Location: In-Patient Room #: [facility] Status: routine BSA: 2.07 HR: 70 bpm BP: 135/80 mmHg Rhythm: NSR Other Information Study Quality: Good Indications Congestive Heart Failure Dyspnea 2D Dimensions IVSd: 11.76 (7-11mm) LVOT Diam: 19.99 (18-24mm) LVDd: 49.90 mm PWd: 10.06 (7-11mm) Ascending Ao: 30.74 (22-36mm) LVDs: 45.28 (25-40mm) Aortic Root: 37.43 mm Volumes Left Atrial Volume (Systole) LA ESV Index: 52.20 mL/m2 Aortic Valve AoV Peak Gianfranco.: 0.81 m/s AO Peak Gr.: 2.63 mmHg LVOT Max P.92 mmHg AO Mean Gr.: 1.61 mmHg LVOT Mean P.49 mmHg LVOT Max V: 0.48 m/s AO V2 VTI: 15.89 cm LVOT Mean V: 0.33 m/s MARLI (VTI): 1.81 cm2 LVOT V1 VTI: 9.16 cm Mitral Valve E/A Ratio: 4.22 MV Decel. Time: 131.75 [place] [address] 2 D/M-MODE ECHOCARDIOGRAM Name: BILL BAUER Room: [address] IN ..#: [id number] Admission: 07/03/18 Attend Phys: Rosa Peoples MD Discharge: Date of : 34 Date of Service: 07/04/18 1416 Report #: [id number] MV E Max Gianfranco.: 1.01 m/s MV PHT: 38.21 ms MVA (PHT): 5.76 cm2 TDI E/Lateral E': 20.20 E/Medial E': 20.20 Medial E' Gianfranco.: 0.05 m/s Lateral E' Gianfranco.: 0.05 m/s Pulmonary Valve PV Peak Gianfranco.: 0.61 m/s PV Peak Gr.: 1.46 mmHg Tricuspid Valve RAP Estimate: 5.00 mmHg TR Peak Gr.: 36.16 mmHg RVSP: 41.00 mmHg PA Pressure: 41.00 mmHg Left Ventricle The left ventricle is normal size. Regional wall motion abnormalities are note with diffuse hypokinesis of the left ventricular wall motion and more prominent inferobasilar hypokinesis. There is normal left ventricular wall thickness. Left ventricular systolic function is moderate to severely decreased. LVEF is 30%. Grade IV - fixed restrictive diastolic dysfunction. Right Ventricle The right ventricle is normal size. The right ventricular systolic function is normal. Pacemaker lead is present in the right ventricle. Atria Left atrium is moderately dilated. The right atrium size is normal. Aortic Valve The aortic valve is normal in structure. Trace aortic regurgitation. There is no aortic valvular stenosis. Mitral Valve Mild mitral annular calcification. Mild to moderate mitral regurgitation. No evidence of mitral valve stenosis. Tricuspid Valve The tricuspid valve is normal in structure. Trace tricuspid regurgitation. Moderate pulmonary hypertension[place] [address] 2 D/M-MODE ECHOCARDIOGRAM Name: BILL BAUER Room: [address] IN [facility]#: [id number] Admission: 07/03/18 Attend Phys: Rosa Peoples MD Discharge: Date of : 34 Date of Service: 07/04/18 1416 Report #: [id number] The pulmonary valve is normal in structure. There is no pulmonic valvular regurgitation. Great Vessels The aortic root is normal in size. IVC is normal in size and collapses >50% with inspiration. Pericardium There is no pericardial effusion. <Conclusion> The left ventricle is normal size. There is normal left ventricular wall thickness. Left ventricular systolic function is moderate to severely decreased. LVEF is 30%. The right ventricle is normal size. Left atrium is moderately dilated. The aortic valve is normal in structure. Mild mitral annular calcification. Mild to moderate mitral regurgitation. The tricuspid valve is normal in structure. IVC is normal in size and collapses >50% with inspiration. Regional wall motion abnormalities are note with diffuse hypokinesis of the left ventricular wall motion and more prominent inferobasilar hypokinesis. <ELECTRONICALLY SIGNED> By: Eduardo Watts MD, FACC 07/04/18 1416 15 1416 Eduardo Watts MD, FACC /INF
--- NOTE | 2018-07-04 15:44 | NUR ---
RE: heart failure medication education I provided the patient with a heart failure medication information handout. I discussed their medications and possible side effects. All questions were answered. Pharmacy is available for any future questions. Thank you.
[2018-07-04 16:15] VITALS: BP 115/69
--- NOTE | 2018-07-04 17:36 | EKG ---
[place] [address] ELECTROCARDIOGRAM REPORT Name: BILL BAUER Room: [address] ADM IN M.R.#: [id number] Admission: 07/03/18 Attend Phys: Rosa Peoples MD Discharge: Date of : 34 Report #: [id number] THIS REPORT FOR: //name// [facility] ED Test Date: 2018-07-03 Test Time: 13:36:37 Pat Name: BILL BAUER Department: Room: [facility] Gender: M Civilian Technician: : 1935 Requested By: Enrique Islas Order Number: [id number] MD: Augie Joya Measurements Intervals [place] Rate: 70 P: 0 [place]: 55 QRS: 269 QRSD: 171 T: 96 QT: 511 QTc: 552 Interpretive Statements Ventricular-paced rhythm No further analysis attempted due to paced rhythm Compared to ECG 12/04/2017 21:45:38 Atrial fibrillation no longer present Electronically Signed On 07-04-2018 17:35:51 CDT by Augie Joya [email or web address] <ELECTRONICALLY SIGNED> By: Augie Joya MD, [facility] 07/04/18 1735 1336 1336 Augie Joya MD, [facility] /EPI
--- NOTE | 2018-07-04 18:39 | NUR ---
VSS.CARDIAC MONITORING IN PLACE WITH NO CHANGES.PT PROGRESSING TOWARDS GOALS.NO C/O PAIN.IV PATENT AND SALINE LOCKED.PT INFORMED OF PLAN OF CARE AND COMMUNICATES UNDERSTANDING.PT AMBULATED IN ROOM.HOURLY ROUNDING COMPLETED FOR PT SAFETY.CALL LIGHT AND FALL PRECAUTIONS IN PLACE.WILL CONTINUE TO MONITOR FOR DURATION OF SHIFT.
[2018-07-04 20:10] VITALS: BP 112/78
[2018-07-05 00:40] VITALS: BP 115/77
[2018-07-05 04:00] VITALS: BP 113/76
[2018-07-05 05:12] LABS: HEMATOCRIT 37.2 % (42.0-52.0); HEMOGLOBIN 12.7 gm/dL (14.0-18.0); MCH 34.2 pg (26.0-34.0); MCHC 34.2 g/dL (28.0-37.0); MCV 99.9 fL (80.0-100.0); MPV 8.1 fl. (7.2-11.1); NUCLEATED RBCS 0 /100WBC; PLATELET COUNT* 170 thou/uL (150-400); RBC 3.73 mil/uL (4.50-6.00); RDW-CV 14.8 % (10.5-14.5); WBC 11.5 thou/uL (4.0-11.0)
[2018-07-05 05:22] LABS: ALBUMIN 3.6 g/dL (3.4-5.0); CALCIUM 8.1 mg/dL (8.5-10.1); CREATININE 1.5 mg/dL (0.6-1.3); POTASSIUM 4.2 mmol/L (3.5-5.1); TOTAL PROTEIN 6.6 g/dL (6.4-8.2)
[2018-07-05 05:36] LABS: ABSOLUTE BASOPHILS 0.1 thou/uL (0.0-0.2); ABSOLUTE MONOCYTES 0.5 thou/uL (0.0-1.2); ABSOLUTE NEUTROPHILS 9.9 thou/uL (1.6-8.1); PLATELET ESTIMATE ADEQUATE
[2018-07-05 05:37] LABS: ANISOCYTOSIS 1+; POIKILOCYTOSIS 1+; POLYCHROMASIA Occasional
[2018-07-05 08:00] VITALS: BP 119/67
--- NOTE | 2018-07-05 10:13 | NUR ---
RECEIVED REPORT FROM HIREN AND ASSUMED CARE OF PT @ 5813.PT IS A/O X4,VSS,TRACING V PACED ON THE MONITOR.IV PATENT AND SALINE LOCKED.PT IS CALM AND COOPERATIVE WITH NO C/O PAIN.PT IS ANXIOUS TO DISCHARGE.UP AD DANIELE IN ROOM AND AMBULATED IN THE HALLWAY.PT LEFT RESTING IN CHAIR WITH CALL LIGHT WITHIN REACH.WILL CONTINUE TO MONITOR.
[2018-07-05 12:26] VITALS: BP 104/60
[2018-07-05 16:25] VITALS: BP 114/74
--- NOTE | 2018-07-05 16:57 | NUR ---
PT OK FOR DISCHARGE.PAPERWORK COMPLETED AND GIVEN TO PT.NO SCRIPTS GIVEN.IV REMOVED.HEART MONITOR REMOVED AND RETURNED TO THE NURSING STATION.ALL PERSONAL BELONGINGS PACKED AND TAKEN WITH PT.CARDIOLOGY FOLLOW UP APPOINTMENT SCHEDULED.PT WHEELED OUT BY NURSING STAFF TO PERSONAL VEHICLE.
--- NOTE | 2018-07-06 07:26 | D ---
[address] [address] DISCHARGE SUMMARY Name: BILL BAUER Room: [address] IN M.R.#: [id number] Admission: 07/03/18 Attend Phys: Rosa Peoples MD Discharge: 07/05/18 Date of : 34 Report #: [id number] THIS REPORT FOR: //name// CC: Dilip Peoples DATE OF SERVICE: 07/05/2018 DISCHARGE DIAGNOSES: Acute on chronic systolic heart failure exacerbation, chronic atrial fibrillation, coronary artery disease, hypertension, and hyperlipidemia. HOSPITAL COURSE: The patient is an 82-year-old gentleman who presented to us here complaining of shortness of breath. He was noted to have acute congestive heart failure exacerbation. Chest x-ray done showed no acute abnormality. A CAT scan of the chest done showed trace pleural effusion with mild interlobular septal thickening and hazy ground glass opacity in the lower lobe marked interstitial edema. He was diuresed. He is doing much better. He has been walking around with no shortness of breath and no oxygen needs. He was then discharged to home. Cardiology also saw the patient in consultation and they agreed to the plan. The patient had an echo done, which showed an EF of 30%. Dr. Joya has wanting to discontinue the flecainide, so we have stopped that at discharge. DISCHARGE PHYSICAL EXAMINATION: VITAL SIGNS: Temperature 36.2, heart rate 72, respiratory rate of 18, blood pressure 114/74. He is 94% on room air. GENERAL: The patient is alert. He is oriented x 3, not in acute respiratory distress. HEENT: Normocephalic, atraumatic. Nares patent. Clear pharynx. NECK: Supple. No lymphadenopathy. CARDIOVASCULAR: Normal rate, regular rhythm. No murmurs noted. RESPIRATORY: Clear to auscultation bilaterally. No wheeze. No crackles. GASTROINTESTINAL: Abdomen is soft, nontender, good bowel sounds. No organomegaly. GENITOURINARY: Deferred. MUSCULOSKELETAL: Fair strength. NEUROLOGIC: Grossly normal. PSYCHIATRIC: The patient is calm and cooperative. The patient will be discharged home. Follow up with PCP in 3-5 days, Cardiology per them. Notify physician if there is a fever of more than 38 degrees, shortness of breath, chest pain. DIET: 2 grams sodium diet, fluid restriction 1500 mL [place] [address] DISCHARGE SUMMARY Name: BILL BAUER Room: [address]#: [id number] Admission: 07/03/18 Attend Phys: Rosa Peoples MD Discharge: 07/05/18 Date of : 34 Report #: [id number] ACTIVITY: Resume normal activity. DISCHARGE MEDICATIONS: Include atorvastatin 10 mg at bedtime, carvedilol 75 mg p.o. b.i.d., which was increased, cholecalciferol 1000 b.i.d., flecainide was discontinued. Continue Lasix 40 mg daily, levothyroxine 125 mcg daily, losartan 12.5 mg daily, potassium chloride 20 mEq daily, rivaroxaban 20 mg dinner time, ropinirole 1 mg at bedtime, trazodone 25 mg at bedtime. I spent 38 minutes taking care of this patient today. <ELECTRONICALLY SIGNED> By: Gisel Maynard MD 07/06/18 0726 1844 [id number] Maynard MD /[facility]
--- NOTE | 2018-07-06 11:09 | CON ---
[address] [address] CONSULTATION Name: BILL BAUER Room: [address] IN M.R.#: [id number] Admission: 07/03/18 Attend Phys: Rosa Peoples MD Discharge: 07/05/18 Date of : 34 Report #: [id number] THIS REPORT FOR: //name// CC: Dilip Wren DATE OF SERVICE: 07/04/2018 INDICATION: Acute on chronic systolic heart failure. HISTORY OF PRESENT ILLNESS: The patient is a very pleasant 82-year-old gentleman well known to myself. He has an ejection fraction of approximately 30% by noninvasive studies. He does not have coronary artery disease. 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 He was seen by myself in the office approximately 3 weeks ago with complaints of increasing shortness of breath and some weight gain. At that time, we adjusted his outpatient oral diuretics. In the interim, he failed to diurese appropriately and had progressive dyspnea on exertion and fatigue. He noted weight gain. He was not having any chest pain. After admission to the hospital, the patient received IV Lasix. He has had improvement in his dyspnea. He remains mildly dyspneic at this time, but improved over admission. He denies orthopnea. He continues to have no chest pain. He has chronic atrial fibrillation, status post AV eboni ablation. He is ventricularly paced. He is chronically anticoagulated with Xarelto and having no bleeding problems. PAST MEDICAL HISTORY: 1. Chronic atrial fibrillation. 2. Nonischemic cardiomyopathy. 3. Mild nonocclusive coronary artery disease by catheterization in 2010. 4. Mild nonocclusive carotid vascular disease. 5. Hypertension. 6. Hypothyroidism. 7. History of thyroid cancer. PAST SURGICAL HISTORY: 1. Thyroidectomy in 02/2010. 2. Catheterization 01/2011 that showed mild coronary artery disease with an EF of 30%. 3. DC cardioversion 04/2014. 4. Pacemaker defibrillator implant with AV eboni ablation 12/2014. [place] [address] CONSULTATION Name: BILL BAUER Room: [address]#: [id number] Admission: 07/03/18 Attend Phys: Rosa Peoples MD Discharge: 07/05/18 Date of : 34 Report #: [id number] FAMILY HISTORY: Noncontributory. SOCIAL HISTORY: The patient quit smoking over 20 years ago. He does not drink alcohol. ALLERGIES: None documented. HOME MEDICATIONS: Atorvastatin 10 mg p.o. at bedtime, carvedilol 12.5 mg p.o. b.i.d., vitamin D 1000 units p.o. b.i.d., flecainide 50 mg p.o. b.i.d., furosemide 40 mg p.o. daily, Synthroid 125 mcg p.o. daily, losartan 25 mg 1/2 tablet p.o. daily, potassium chloride 10 mEq 2 tablets p.o. daily, Xarelto 20 mg p.o. at bedtime, ropinirole 1 mg p.o. at bedtime, trazodone 25 mg p.o. at bedtime. REVIEW OF SYSTEMS: A 14-point review of systems is positive for shortness of breath with activity. History of thyroid disease, history of thyroid cancer, status post thyroidectomy, decreased hearing and dentures. Otherwise, 14-point review of systems was unremarkable. PHYSICAL EXAMINATION: VITAL SIGNS: Blood pressure 115/69, pulse 77 and paced on telemetry. GENERAL: This is a pleasant gentleman in no distress. Mood and affect appropriate. HEENT: Extraocular muscles intact. Mucous membranes are moist. NECK: Shows mild jugular venous distention. I do not appreciate bruit. CHEST: Reveals breath sounds diminished in the bases without wheezes or rales. CARDIOVASCULAR: Reveals a regular rhythm without gallop or murmur. ABDOMEN: Reveals normal bowel sounds. The abdomen is soft, nontender. EXTREMITIES: Shows no edema. Peripheral pulses 2+ and palpable. SKIN: Warm and dry. LABORATORY DATA: A 12-lead EKG shows ventricular pacing. IMPRESSION AND RECOMMENDATIONS: 1. Acute on chronic systolic heart failure. Agree with diuresis with IV Lasix. We will adjust heart failure medications as tolerated while in the hospital. 2. Chronic atrial fibrillation. We would discontinue flecainide as this has no benefit for the patient. He is status post AV eboni ablation. Continue chronic anticoagulation. 3. Coronary artery disease, nonocclusive by catheterization. He is not having any symptoms to suggest angina or acute coronary syndrome. 4. Hypertension. Blood pressure adequately controlled on current cardiac regimen. [address] [address] CONSULTATION Name: BILL BAUER Room: [address] IN M.R.#: [id number] Admission: 07/03/18 Attend Phys: Rosa Peoples MD Discharge: 07/05/18 Date of : 34 Report #: [id number] 5. Hyperlipidemia. Continue low dose atorvastatin at this time. 6. ICD in place with normal function by recent interrogation in the office. <ELECTRONICALLY SIGNED> By: Augie Joya MD, FACC 07/06/18 1109 1623 [id number] Joya MD, FACC /nt
[2018-07-08 07:05] LABS: HEPATITIS B SURFACE AG Negative (Negative)
== END 2018-07-05 17:09 | disposition home or self-care (01) | DRG 291 ==
LOC: M.ERS 13:04 → M.2W 15:07 → M.TBA-ER 15:07 → M.2W 15:44
PROVIDERS: Nurse Practitioner Family; ADMIT Family Medicine
DX: I13.0 Hypertensive heart and chronic kidney disease with heart failure and stage 1 through stage 4 chronic kidney disease, or unspecified chronic kidney disease (principal); I50.23 Acute on chronic systolic (congestive) heart failure; I42.8 Other cardiomyopathies; N18.3 Chronic kidney disease, stage 3 (moderate); E89.0 Postprocedural hypothyroidism; I48.2 Chronic atrial fibrillation; E78.5 Hyperlipidemia, unspecified; I25.10 Atherosclerotic heart disease of native coronary artery without angina pectoris; G47.33 Obstructive sleep apnea (adult) (pediatric); R91.1 Solitary pulmonary nodule; E87.6 Hypokalemia; Z95.0 Presence of cardiac pacemaker; Z87.891 Personal history of nicotine dependence; Z85.850 Personal history of malignant neoplasm of thyroid

== ENCOUNTER 2020-12-26 21:35 | Emergency (ER) | payer MEDICARE ==
[~2020-12-26] VITALS: Ht 175.3 cm; Wt 90.7 kg
[~2020-12-26 21:35] MED LIST changes: +COZAAR 25 MG TA25 M2 PO; +FLECAINIDE ACET50 M1 PO; +LIPITOR10 MG PO; +SYNTHROID125 MC1 PO
[2020-12-26] MEDS ORDERED: MEMANTINE HCL10 MG PO (21:48)
[2020-12-26 22:38] LABS: ABSOLUTE BASOPHILS 0.1 thou/uL (0.0-0.2); ABSOLUTE EOSINOPHILS 0.2 thou/uL (0.0-0.7); ABSOLUTE MONOCYTES 0.7 thou/uL (0.0-1.2); ABSOLUTE NEUTROPHILS 5.2 thou/uL (1.6-8.1); BASOPHILS 1.2 %; EOSINOPHILS 3.2 %; HEMATOCRIT 40.3 % (42.0-52.0); HEMOGLOBIN 13.8 gm/dL (14.0-18.0); LYMPHOCYTES 14.3 %; MCH 31.7 pg (26.0-34.0); MCHC 34.2 g/dL (28.0-37.0); MCV 92.9 fL (80.0-100.0); MONOCYTES 9.3 %; MPV 6.6 fl. (7.2-11.1); NUCLEATED RBCS 0 /100WBC; PLATELET COUNT* 218 thou/uL (150-400); RBC 4.34 mil/uL (4.50-6.00); RDW-CV 15.3 % (10.5-14.5); WBC 7.2 thou/uL (4.0-11.0)
[2020-12-26 22:46] LABS: CALCIUM 8.9 mg/dL (8.5-10.1); CREATININE 1.5 mg/dL (0.6-1.3); POTASSIUM 4.1 mmol/L (3.5-5.1)
[2020-12-26 22:50] LABS: BE -1.2 mmol/L (-2 to +3); PCO2 33.3 mmHg (35.0-45.0); PO2 73.6 mmHg (75.0-100.0); pH 7.441 (7.340-7.450)
[2020-12-26 22:56] LABS: ALBUMIN 3.9 g/dL (3.4-5.0); MAGNESIUM 2.4 mg/dL (1.8-2.4); TOTAL BILIRUBIN 1.2 mg/dL (<0.1-1.0); TOTAL PROTEIN 7.4 g/dL (6.4-8.2)
[2020-12-26] MEDS ORDERED: AUGMENTIN 500-1 EACH PO (23:40)
[2020-12-26 23:52] LABS: URINE BILIRUBIN NEGATIVE (Negative); URINE BLOOD TRACE (Negative); URINE CLARITY CLEAR; URINE COLOR YELLOW; URINE GLUCOSE-RANDOM NEGATIVE (Negative); URINE KETONES NEGATIVE (Negative); URINE LEUKOCYTES-REFLEX NEGATIVE (Negative); URINE NITRITE-REFLEX NEGATIVE (Negative); URINE PROTEIN NEGATIVE (Negative); URINE UROBILINOGEN 0.2 E.U./dl (0.2-1.0)
[2020-12-27 00:15] VITALS: BP 107/51
--- NOTE | 2020-12-28 08:41 | EKG ---
[place] [address] ELECTROCARDIOGRAM REPORT Name: BILL BAUER Room: [facility]#: [id number] Admission: 12/26/20 Attend Phys: Discharge: 12/27/20 Date of : 33 Date of Service: 12/26/202146 Report #: [id number] THIS REPORT FOR: //name// [facility] ED Test Date: 2020-12-26 Test Time: 21:47:00 Pat Name: BILL BAUER Department: Room: Gender: Freight Booker: [place] : 1935 Requested By: Stacey Mcfarland Order Number: [id number] MD: Augie Joya Measurements Intervals [place] Rate: 70 P: 0 [place]: 184 QRS: 269 QRSD: 173 T: 88 QT: 459 QTc: 496 Interpretive Statements Ventricular-paced rhythm No further analysis attempted due to paced rhythm Compared to ECG 07/03/2018 13:36:37 No significant changes Electronically Signed On 12-28-2020 8:41:29 WASTE CHOPPER by Augie Joya [email or web address] <ELECTRONICALLY SIGNED> By: Augie Joya MD, FACC 12/28/20 0841 46 Augie Joya MD, FAC /EPI
== END 2020-12-27 00:17 | disposition home or self-care (01) ==
LOC: M.ERS 21:35
PROVIDERS: Personal Emergency Response Attendant
DX: J32.9 Chronic sinusitis, unspecified (principal); Z20.822 Contact with and (suspected) exposure to COVID-19; R04.0 Epistaxis; I50.9 Heart failure, unspecified; N18.32 Chronic kidney disease, stage 3b; Z98.890 Other specified postprocedural states; Z79.899 Other long term (current) drug therapy